=== PATIENT | female | born 1985 | race Caucasian/White ===

== ENCOUNTER 2025-05-02 09:11 | Emergency (ER) | payer MEDICAID, OTHER ==
[~2025-05-02] VITALS: Ht 162.6 cm; Wt 66.0 kg
[2025-05-02 09:50] VITALS: O2SAT 100
[2025-05-02 10:35] LABS: CLARITY URINE CLEAR (CLEAR); COLOR URINE YELLOW (YELLOW); GLUCOSE URINE NEGATIVE (NEGATIVE); KETONES URINE 1+ (NEGATIVE); LEUKOCYTE ESTERASE URINE NEGATIVE (NEGATIVE); NITRITE URINE NEGATIVE (NEGATIVE); OCCULT BLOOD URINE NEGATIVE (NEGATIVE); PH URINE 5.5 (4.5-8.0); PROTEIN URINE NEGATIVE (NEGATIVE); SPECIFIC GRAVITY URINE 1.022 (1.005-1.030); UROBILINOGEN URINE 0.2 E.U./dL (0.2-1.0)
[2025-05-02] MEDS: HYDROCODONE/ACETAMINOPHEN 5/325MG TABLET PO ONE (11:04)
[2025-05-02] MEDS: ONDANSETRON 4MG ODT PO NR (11:04)
[2025-05-02 11:07] LABS: BASOPHILS % 0.3 % (0.0-2.0); EOSINOPHILS % 0.9 % (0.0-5.0); HEMATOCRIT. 44.9 % (36.0-48.0); HEMOGLOBIN. 15.0 g/dL (12.0-16.0); LYMPHOCYTES % 9.4 % (20.0-50.0); MEAN PLATELET VOLUME 8.9 fl (7.4-10.4); MONOCYTES % 5.3 % (2.0-8.0); NEUTROPHILS % 84.1 % (40.0-76.0); PLATELET 214 x1000/uL (130-400); RED BLOOD CELL COUNT 4.99 mill/uL (4.2-5.4); RED CELL DISTRIBUTION WIDTH 12.4 % (11.6-14.6)
[2025-05-02 11:31] LABS: CREATININE 0.7 mg/dL (0.6-1.0); HCG SCREEN NEGATIVE; UREA NITROGEN BLOOD 7 mg/dL (9-23)
[2025-05-02 11:33] LABS: ASPARTATE AMINOTRANSFERASE 17 IU/L (<34); BILIRUBIN DIRECT 0.2 mg/dL (<=3.0); BILIRUBIN TOTAL 0.9 mg/dL (0.1-1.0)
[2025-05-02 11:34] LABS: PROTEIN TOTAL 7.7 g/dL (6.0-8.3)
[2025-05-02] MEDS: KETOROLAC 15MG/ML VIAL IV ONE (12:07)
[2025-05-02] MEDS: PANTOPRAZOLE SODIUM 40 MG/VIAL IV ONE (12:07)
[2025-05-02] MEDS: SODIUM CHLORIDE 0.9% 1,000 ML IV ONE (12:08)
[2025-05-02] MEDS: MORPHINE SULFATE 4 MG/ML INJ (FOR IV/IM USE) IV ONE (13:02)
[2025-05-02] MEDS: CEFTRIAXONE 1GM/50ML 50 ML IV ONE (13:02)
[2025-05-02] MEDS: METRONIDAZOLE 500 MG PREMIX 100 ML IV ONE (13:33)
[2025-05-02 15:00] VITALS: TEMP 36.7; O2SAT 98
[2025-05-02] MEDS ORDERED: BUPIVACAINE HCL/PF 0.5% (5MG/ML) 10ML ONE (15:21)
[2025-05-02] MEDS ORDERED: SKIN ADHESIVE 0.7 GM EA TOP ONE (15:21)
[2025-05-02 15:41] VITALS: TEMP 98.78
[2025-05-02] MEDS ORDERED: DEXAMETHASONE 4MG/ML 1ML VIAL ONE (16:13)
[2025-05-02] MEDS ORDERED: ONDANSETRON HCL 4MG/2ML INJ ONE (16:13)
[2025-05-02] MEDS ORDERED: PROPOFOL 200MG/20ML VIAL IV ONE (16:14)
[2025-05-02] MEDS ORDERED: MIDAZOLAM HCL 2 MG/2 ML VIAL ONE (16:14)
[2025-05-02] MEDS ORDERED: LIDOCAINE HCL 1% 10 MG/ML 10ML VIAL ONE (16:14)
[2025-05-02] MEDS ORDERED: ROCURONIUM BROMIDE 10MG/ML VIAL 5ML IV ONE (16:14)
[2025-05-02] MEDS ORDERED: FENTANYL CITRATE/PF 50MCG/ML 2ML VIAL ONE (16:15)
[2025-05-02] MEDS ORDERED: ACETAMINOPHEN 1000MG/100ML 100 ML IV ONE (16:20)
[2025-05-02] MEDS ORDERED: LABETALOL 5MG/ML 4ML INJ IV PRN (16:30)
[2025-05-02] MEDS ORDERED: ONDANSETRON HCL 4MG/2ML INJ IV PRN ×2 (16:30→17:15)
[2025-05-02] MEDS ORDERED: HYDRALAZINE 20MG/ML VIAL IV PRN (16:30)
[2025-05-02] MEDS ORDERED: FENTANYL CITRATE/PF 50MCG/ML 2ML VIAL IV PRN (16:30)
[2025-05-02] MEDS ORDERED: HYDROMORPHONE HCL/PF 1MG/ML INJ IV PRN (16:30)
[2025-05-02] MEDS ORDERED: ALBUTEROL (0.083%) 2.5MG/3ML NEB HHN NR (16:30)
[2025-05-02] MEDS ORDERED: MAGNESIUM/ALUMINUM HYDROXIDE/SIMETHICONE 30ML UDC PO PRN (17:15)
[2025-05-02] MEDS ORDERED: MORPHINE SULFATE 2 MG/ML INJ (NOT FOR IM USE) IV PRN (17:15)
[2025-05-02] MEDS ORDERED: ACETAMINOPHEN 325MG TABLET PO PRN (17:15)
[2025-05-02] MEDS ORDERED: HYDROCODONE/ACETAMINOPHEN 5/325MG TABLET PO PRN (17:15)
[2025-05-02] MEDS ORDERED: CLONIDINE 0.1MG TABLET PO PRN (17:15)
[2025-05-02] MEDS ORDERED: ZOLPIDEM TARTRATE 5MG TABLET PO PRN (17:15)
[2025-05-02] MEDS ORDERED: NALOXONE HCL 0.4MG/ML VIAL IV PRN (17:30)
[2025-05-02] MEDS ORDERED: PIPERACILLIN/TAZO 3.375G/50ML 50 ML IV SCH (18:00)
[2025-05-02 18:35] VITALS: BP 110/73; PULSE 97; RESP 18
[2025-05-02] MEDS: ACETAMINOPHEN WITH CODEINE 300/30MG TABLET PO NR (18:35)
[2025-05-03] MEDS ORDERED: PANTOPRAZOLE SODIUM 40 MG/VIAL IV SCH (09:00)
[2025-05-03] MEDS ORDERED: ENOXAPARIN 40MG/0.4ML SYR SUBCUT SCH (09:00)
== END 2025-05-02 19:30 | disposition home or self-care (01) ==
LOC: ER 09:11 → EDBEDREQTM 17:04 → EDBEDREQ 17:04 → ER 19:30 → CMPBEDREQ 05-03 07:24
DX: K35.80 Unspecified acute appendicitis (principal)
CPT/HCPCS: 44970; 80076; 80048; 81003; 81025; 84703; 83690; 85025; 36415; 88304; 71045; 74176; 96367; 96368; 96365; 96375; 99285; J3010; Q0162; J0665; J0696; J1100; J1885; J2003; J3490 ×2; J2250; J2405; J2470; J2704; J2270; J7030; Z7610 ×17; J0131